=== PATIENT | female | born 1940 | race Caucasian/White ===

== ENCOUNTER 2020-01-01 12:50 | Observation (INO) ==
[2020-01-01] MEDS ORDERED: fentaNYL citrate 100 MCG/2 ML VIAL ONE ×2 (15:53→17:41)
[2020-01-01] MEDS ORDERED: MIDAZOLAM HCL 5 MG/ML 1 ML VIAL ONE (15:53)
[2020-01-01] MEDS ORDERED: CEFAZOLIN 250 MG/ML 1 GM VIAL ONE (15:53)
[2020-01-01] MEDS ORDERED: LIDOCAINE HCL 1% 20 ML VIAL ONE (15:56)
[2020-01-01] MEDS ORDERED: BUPIVACAINE 0.25% 30 ML VIAL ONE (15:57)
[2020-01-01] MEDS ORDERED: BACITRACIN INJ 50,000 UNIT VIAL ONE (15:58)
--- NOTE | 2020-01-01 16:10 | History & Physical Bridge Note ---
Date of Service January 01, 2020 History & Physical Bridge Note I have examined the patient, reviewed the History & Physical and in the interval since the performance of the History & Physical I have noted the following changes of clinical significance: no changes noted
--- NOTE | 2020-01-01 16:10 | Pre Anesthesia Assessment ---
Date of Service January 01, 2020 Pre Sedation Assessment Vital Signs Temp Pulse Resp BP Pulse Ox 01/01/20 13:08 36.8 C 81 16 167/91 H 95 Cardiovascular + regular rate Respiratory normal respiratory effort, lungs clear to auscultation Pre-Sedation Airway Assessment Smoking Status: Former smoker Short, Thick Neck: No Thyromental Distance: > or= 3.5 Finger Breadths Oral Cavity: + Dentures Mallampati Class: III ASA: ASA3 NPO Status Date of Last Intake of Fluids: 12/31/19 Time of Last Intake of Fluids: 22:00 Date of Last Intake of Solid Food: 12/31/19 Time of Last Intake of Solid Foods: 20:00 Procedure Planning Contraindications for Sedation: none Current Medications Reviewed: Yes Notes The planned sedation has been discussed with the patient. Informed Consent was obtained. I have identified the patient, determined the appropriateness of sedation and have assessed the patient immediately prior to the procedure. All medicine(s) and interventions are by my order.
--- NOTE | 2020-01-01 18:09 | Discharge Summary ---
Date of Service Jan 02, 2020 Admission HPI Per Admitting Provider Pt admitted for elective ppm Admission Exam Per Admitting Provider aaox3, NAD NC/AT, EOMI Supple No JVD Nrl S1/S2, No murmur CTA b/l no w/r/r soft nt/nd no LE edema b/l skin intact no focal deficits Principal Diagnosis Intermittent CHB s/p PPM Discharge Exam aaox3, NAD NC/AT, EOMI Supple No JVD Nrl S1/S2, No murmur CTA b/l no w/r/r soft nt/nd no LE edema b/l skin intact no focal deficits left pectoral incision intact, no hematoma mild ecchymosis Discharge Data Allergies Allergy/AdvReac Type Severity Reaction Status Date / Time acetaminophen [From Vicodin] Allergy Swelling Verified 01/01/20 13:24 of Lip/Tongue/Throat hydrocodone [From Vicodin] Allergy Swelling Verified 01/01/20 13:24 of Lip/Tongue/Throat Procedures Performed Operation Date: 01/01/20 14:30 Actual Procedures p Pacer with A/V Leads (Dual) - Sofi Woody DO s Venogram, Unilateral - Sofi Woody DO s Bundle of his Recording - Sofi Woody DO Ordered Studies ECG: SR CXR: No PTX, leads in position PPM Interrogation:Normal function 01/01/20 06:45 EP Lab Images for PACS ONCE Hospital Course (1) Intermittent complete heart block: Total Time Total Time Spent Total Time Spent (In Minutes): 35 Total Time Includes: Examination of the Patient, Discharge Planning, Medication Reconciliation and Other Discharge Plan Discharge Items Patient Disposition: Home - Self-Care Reason For Visit: Intermittent Complete Heart Block Discharge Diagnosis: intermittent CHB s/p left bundle ppm Condition on Discharge: Good Activity: As commented below Activity Comment: do not raise the left elbow over the left shoulder for 1 month Lifting: No more than 10 pounds Bathing: Keep incision dry Bathing Comment: keep dressing on and dry until wound check next week Sexual Activity: After one week Non-emergency contact: Transcription Typist Call non-emergency contact if: you have any medication questions Follow-up/Referrals: Brigida Pandey DO [Primary Care Provider] - Diet: Heart Healthy Addtl Attending Provider Instructions: device and wound check next week as scheduled at [facility] Pending Studies at Discharge: No Stand-Alone Forms: [facility] Medications and DC Order Prescriptions: New metoprolol succinate 25 mg Tablet Extended Release 24 Hr 25 mg PO QAM 30 Days Qty: 30 RF: 0 Continued losartan 50 mg Tablet 50 mg PO DAILY RF: 0 atorvastatin [Lipitor] 40 mg Tablet 40 mg PO DAILY RF: 0 levothyroxine 100 mcg Tablet 100 mcg PO DAILY RF: 0 ropinirole [Requip] 2 mg Tablet 2 mg PO HS RF: 0 aspirin 81 mg Tablet 81 mg PO DAILY RF: 0 escitalopram oxalate [Lexapro] 10 mg Tablet 10 mg PO DAILY RF: 0 metformin 500 mg Tablet Extended Release 24hr 500 mg PO BID RF: 0 Discharge Orders: Discharge Order (Routine); Ordered 01/02/20 Ordered By: Sofi Woody Admission Data Admit Date/Time: 01/01/20 17:03 Attending Provider: Sofi Woody Admit Provider: Sofi Woody Primary Care Provider: Brigida Pandey
[2020-01-01] MEDS ORDERED: OXYCODONE/ACETAMINOPHEN 5mg/325mg TAB PO PRN (18:45)
[2020-01-01] MEDS ORDERED: ACETAMINOPHEN 325 MG TAB PO PRN (18:45)
[2020-01-01] MEDS ORDERED: ROPINIROLE HCL 1 MG TABLET PO SCH (21:00)
[2020-01-02] MEDS ORDERED: LEVOTHYROXINE SODIUM 100 MCG TABLET PO SCH (06:30)
[2020-01-02] MEDS ORDERED: METFORMIN 500 MG PO SCH (08:00)
[2020-01-02] MEDS ORDERED: METFORMIN HCL 500 MG TAB PO SCH (08:00)
--- NOTE | 2020-01-02 08:32 | XRay Report ---
TWO VIEW CHEST CLINICAL HISTORY: Status post pacemaker implantation. FINDINGS: PA and lateral chest radiographs are obtained. No prior studies are available for compariso n at the time of dictation. A 2-lead cardiac pacemaker has been placed. This partially obscures the l eft upper chest. Leads project over the right atrial appendage and the right ventricle. The heart is mildly enlarged noting atherosclerotic calcification of the thoracic aorta. The pulmonary vasculature is noncongested. There is bibasilar scarring/atelectasis. No airspace consolidation or pleural effus ion is identified. There is no pneumothorax. The bony skeletal structures are osteopenic. A mild comp ression deformity is noted in the thoracic spine. IMPRESSION: 1. A 2-lead cardiac pacemaker has been placed as above. No pneumothorax is seen post procedure. 2. Cardiomegaly without radiographic evidence of congestive failure. 3. No airspace consolidation or pleural effusion is identified. ACT 112: Negative or not required by law. Electronically signed by: Barry Yost M.D. 01/02/2020 8:31 AM
[2020-01-02] MEDS ORDERED: LOSARTAN POTASSIUM 50 MG TAB PO SCH (09:00)
[2020-01-02] MEDS ORDERED: ASPIRIN 81 MG ECTAB PO SCH (09:00)
[2020-01-02] MEDS ORDERED: ESCITALOPRAM OXALATE 10 MG TAB PO SCH (09:00)
[2020-01-02] MEDS ORDERED: METOPROLOL SUCC 25MG EXT REL TAB PO SCH (09:00)
[2020-01-02] MEDS ORDERED: ATORVASTATIN 40 MG TAB PO SCH (09:00)
--- NOTE | 2020-01-03 05:46 | Electrocardiogram Report ---
Test Reason : Blood Pressure : / mmHG Vent. Rate : 067 BPM Atrial Rate : 067 BPM P-R Int : 188 ms QRS Dur : 082 ms QT Int : 398 ms P-R-T Axes : 072 -53 -01 degrees QTc Int : 420 ms Sinus rhythm with Premature atrial complexes Left axis deviation Nonspecific ST and T wave abnormality Abnormal ECG No previous ECGs available Confirmed by Raudel Tilley ([id number]) on 01/03/2020 5:45:41 AM Referred By: Sofi Woody Confirmed By:Raudel Tilley
--- NOTE | 2020-01-09 03:51 | Operative Report (OR) ---
DATE OF OPERATION: 01/01/2020 PREOPERATIVE DIAGNOSIS: Tachybrady syndrome. POSTOPERATIVE DIAGNOSIS: Tachybrady syndrome. PROCEDURE: Dual chamber (left bundle) rate responsive permanent pacemaker under fluoroscopic guidance along with peripheral venogram and intracardiac electrogram mapping of the His bundle region. SURGEON: Sofi oWody DO. CENTRAL LAB TECHNICIAN: None Anesthesia: Genet [place]. Start time 16:40, end time 17:58 and a total of 5 mg of Versed and 125 mcg of fentanyl. INTRAVENOUS FLUIDS: 142 mL. ANTIBIOTICS: Two grams of Ancef. CONTRAST: 17 mL. BLOOD LOSS: 20 mL. URINE OUTPUT: Not applicable. SPECIMENS: None. FINDINGS: See below. DRAINS: None. INDICATIONS: This is a 79-year-old female with past medical history for PAT, hypertension, chronic kidney disease stage III, COPD, hypothyroidism, diabetes as well as syncope secondary to intermittent complete heart block, she was recommended a dual chamber pacemaker. CONSENT: Consent was obtained prior to the patient going into electrophysiology lab. The patient was informed of the risks, benefits and alternative procedure. Risks include but not limited to sudden cardiac , cardiac arrhythmias, cerebrovascular accident, myocardial infarction, injury to the blood vessels, chamber of the heart, lung, bleeding, and infection. The patient understood these risks and agreed with procedure as planned. Informed consent was obtained. DESCRIPTION OF THE PROCEDURE: The patient was brought into the electrophysiology lab in fasting state. She was connected to continuous musical engineer. Timeout was performed to ensure patient identity and procedure correctly. The patient was prepped and draped over the left infraclavicular space in normal surgical standard fashion. Monitored conscious sedation was given throughout the procedure for patient's comfort level. [place] precautions were maintained throughout the procedure. 10 mL of 1% lidocaine, bupivacaine mixture were given in the left deltopectoral groove. Incision was made in left deltopectoral groove. Blunt dissection performed down to the subcutaneous tissue. Then a peripheral venogram using 10 mL of contrast was performed to identify the axillary vein. Venous axillary access was obtained through a needlestick without any problems. Guidewire was inserted without any problems. A 7-[place] SafeSheath was then advanced over the guidewire without any resistance. The dilator was removed and a second guidewire was advanced through the sheath to allow for retained venous access. Sheath was removed and then the 7-[place] sheath was placed back over one o fthe guidewires it was flushed, dilator reinserted over it and then it was placed over one of the guidewires. Guidewire and dilator were removed. Then, the His preformed J sheath was advanced into the right ventricle over a Glidewire. The Glidewire and dilator were removed. Then, the lead was advanced through the sheath and intracardiac electrogram mapping was performed of the His bundle. The AH was found to be 99 milliseconds, HV was 54 milliseconds. I then rotated the camera to ANTONIO 30 degrees. I marked where the His area was on my fluoroscopy monitors. Then I connor an imaginary line down to the apex about 2 cm down from the His on that imaginary line, from the His bundle, I marked on my monitors screens again so I have an idea of where I wanted my left bundle lead. I then positioned the sheath and the lead in that area in [place], I watch to make sure I was up against the septum. I then gave a series of clockwise turns to start screwing the lead into the septum watching every few turns and look at my QRS morphology in V1 to see that there was a notch moving out to the end and the pacing stim to peak QRS V5 and V6 as well as looking at impedance drops. I then gave a puff of contrast through the sheath to see how much my sheath was against the septum and how much my lead was in the septum to get an idea. Once I felt confident and happy with my electrogram and how much of lead was in the septum, the sheath was then slit under fluoroscopic guidance. I kept the 7-[place] SafeSheath in and then I went to go to place the right atrial lead. Through the retained guidewire an 8-[place] SafeSheath was advanced. The guidewire and dilator removed. The right atrial lead was then advanced into right atrium and positioned interatrial appendage under fluoroscopic guidance. There was adequate pacing and sensing thresholds and no diaphragmatic stimulation with high output pacing. An 8-[place] sheath was peeled away and lead was fixated to pectoralis muscle using 0 silk suture. I then slit. The 7-[place] SafeSheath over the left bundle lead (of note I did reposition the left bundle once). Then the sheath was slit and the lead was fixated to pectoralis muscle using 0 silk suture. The pacemaker pocket was created using blunt dissection over the pectoralis muscle within the pectoralis fascia. The pocket was flushed with copious amounts of bacitracin saline wash and inspected for hemostasis. The pulse generator was then attached to leads making sure the pins were in appropriate position, passed set screw and set screws were tightened, then the device was placed in an antibiotic pouch and then placed in the pocket, making sure the leads were lying flat beneath the device. The incision was then closed in 3-layer fashion with 2-0 Vicryl interrupted suture followed by 3-0 Vicryl interrupted suture, followed by Monocryl running stitch. Dermabond was applied followed by a Telfa and micropore dressing. EQUIPMENT: 1. The new pulse generator is a Stir [place] XT DR TYLER Roper [id number], serial #[id number]. 2. Tyrx pouch was reference [id number], lot #[id number], expiration 10/20/2020. 3. Right atrial lead Medtronic 5076-52 cm, serial #[id number]. 4. Left bundle lead is a Medtronic 3830-69 cm, serial #[id number]. INTRAOPERATIVE TESTIN. Right atrial lead: P waves 4.8 millivolts, impedance 1023 ohms, threshold 0.9 volts at 0.5 milliseconds. 2. Left bundle lead: Medtronic 3830-69 cm, serial number [id number]. INTRAOPERATIVE MEASUREMENTS: 1. Right atrial lead: P waves 4.8 millivolts, impedance 1023 ohms, threshold 0.9 volts at 0.5 milliseconds. 2. Left bundle lead: R waves are 9.4 millivolts, impedance 773 ohms, threshold 0.4 volts at 0.5 milliseconds. FINAL MEASUREMENTS THROUGH THE DEVICE: 1. Right atrial lead: P waves 1 millivolt, impedance 874 ohms, threshold 0.75 volts at 0.4 milliseconds. 2. Left bundle lead: R waves 9.8 millivolts, impedance 708 ohms, threshold 0.75 volts at 0.4 milliseconds. 3. Right atrial amplitude 3.5 volts, pulse width 0.4 milliseconds, sensitivity 0.3 millivolts. 4. Right ventricular amplitude 3.5 volts, pulse width 0.4 milliseconds, sensitivity 1.2 millivolts. IMPRESSION: Successful implantation of a dual chamber (left bundle) rate responsive permanent pacemaker along with peripheral venogram and intracardiac His electrogram mapping all under fluoroscopic guidance secondary to intermittent complete heart block. PLAN: Monitor patient overnight, 12-lead ECG, chest x-ray. She cannot lift left elbow or left shoulder for 1 month. She cannot lift more than 10 pounds with the left arm for 2 weeks. She is to keep the dressing on and dry until her wound check next week and we will start her on metoprolol 25 mg daily. I attest to the content of the Intraoperative Record and any orders documented therein. Any exceptions are noted below. MTDD
== END 2020-01-02 09:30 | disposition home or self-care (01) ==
LOC: 2S 12:50 → EP 12:50
DX: Z79.899 Other long term (current) drug therapy; E11.22 Type 2 diabetes mellitus with diabetic chronic kidney disease; E78.5 Hyperlipidemia, unspecified; N18.30 Chronic kidney disease, stage 3 unspecified; I44.2 Atrioventricular block, complete; I49.5 Sick sinus syndrome; Z01.810 Encounter for preprocedural cardiovascular examination; F39 Unspecified mood [affective] disorder; I47.1 Supraventricular tachycardia; I12.9 Hypertensive chronic kidney disease with stage 1 through stage 4 chronic kidney disease, or unspecified chronic kidney disease; Z79.890 Hormone replacement therapy; Z79.82 Long term (current) use of aspirin; J44.9 Chronic obstructive pulmonary disease, unspecified; E03.9 Hypothyroidism, unspecified

== ENCOUNTER 2024-06-07 05:50 | Observation (INO) ==
--- NOTE | 2024-05-07 16:26 | PAT Medication Instructions ---
Medication Instructions Date of Service May 07, 2024 Home Medications atorvastatin 40 mg tablet (Lipitor) 40 mg PO QAM escitalopram oxalate 10 mg tablet (Lexapro) 10 mg PO DAILY losartan 50 mg tablet 50 mg PO QAM ropinirole 2 mg tablet 2 mg PO HS gabapentin 600 mg tablet 600 mg PO HS acetaminophen 500 mg tablet 1,000 mg PO Q6H PRN Pain albuterol sulfate 90 mcg/actuation aerosol inhaler 1 inh inhalation QID PRN SOB or wheezing levothyroxine 75 mcg tablet 75 mcg PO QAM oxycodone 5 mg tablet 5 mg PO UD PRN Pain semaglutide 0.25 mg or 0.5 mg (2 mg/3 mL) subcutaneous pen injector (Ozempic) 0.25 mg subcut Q7D Continue as directed escitalopram oxalate 10 mg tablet (Lexapro) 10 mg PO DAILY STOP taking at least 7 days before surgery semaglutide 0.25 mg or 0.5 mg (2 mg/3 mL) subcutaneous pen injector (Ozempic) 0.25 mg subcut Q7D DO NOT take the morning of surgery losartan 50 mg tablet 50 mg PO QAM Take morning of surgery With a small sip of water, OTHERWISE NOTHING TO EAT OR DRINK AFTER MIDNIGHT: atorvastatin 40 mg tablet (Lipitor) 40 mg PO QAM acetaminophen 500 mg tablet 1,000 mg PO Q6H PRN Pain (if needed) albuterol sulfate 90 mcg/actuation aerosol inhaler 1 inh inhalation QID PRN SOB or wheezing (use if needed; please bring with you to hospital day of surgery if possible) levothyroxine 75 mcg tablet 75 mcg PO QAM oxycodone 5 mg tablet 5 mg PO UD PRN Pain (if needed) Take evening before surgery ropinirole 2 mg tablet 2 mg PO HS gabapentin 600 mg tablet 600 mg PO HS acetaminophen 500 mg tablet 1,000 mg PO Q6H PRN Pain (if needed) oxycodone 5 mg tablet 5 mg PO UD PRN Pain (if needed) albuterol sulfate 90 mcg/actuation aerosol inhaler 1 inh inhalation QID PRN SOB or wheezing (if needed) Other Notes If you have any questions please call us at [phone] or [phone] or [phone] or [phone]
--- NOTE | 2024-05-16 09:47 | Anesthesiology Consultation ---
Date of Service May 16, 2024 Assessment & Plan (1) Encounter for pre-operative examination: - Check BSG DOS - Infectious disease screening: Per assessment on 05/16/24- No known recent infectious disease contacts or current infectious disease symptoms. - Outpatient joint assessment: Pt currently scheduled for inpatient pathway. If surgeon requests review for outpatient joint pathway, patient is not recommended candidate for outpatient joint program from anesthesia standpoint based on available information. - Semaglutide instructions: Patient informed by PAT to stop 7 days prior to surgery- voiced understanding. DOS 06/07/24. Advised last dose to be 05/29/24. - Cardiology visit (05/30/23): "Plan: -HR and BP well controlled -she is euvolemic on exam -ECG completed today reveals normal sinus rhythm with stable intervals -device checks reveal stable pacing thresholds with adequate pacing burden. -device was interrogated today during the office visit please see Dr. Woody's attestation for additional details -continue to follow with device clinic -stable from a cardiac standpoint -scheduled for repeat echo today after her visit -continue metoprolol, losartan, atorvastatin, amlodipine -Educated patient on caution with change in positions to minimize symptomatic orthostatic hypotension -Discussed importance of diet & exercise with the patient. - Discussed with patient subtle changes in how they are feeling or completing daily activities to contact us sooner; don't wait days or weeks.." > Echo done 05/30/23 (results in testing section). - PCP visit (05/13/24): "Chronic Kidney Disease (CKD) Stable with creatinine 1.5, stage 3B. No new symptoms reported.. Continue current management and hydration.. Repeat kidney function tests in 6 months.. Type 2 Diabetes Mellitus Well controlled with HbA1c 6.6% on Ozempic 0.25mg.. Continue Ozempic 0.25mg.. Stop Ozempic 1 week prior to surgery.. Resume Ozempic post-surgery, increase to 0.5mg 2 weeks post-surgery.. Severe pain, scheduled for total hip replacement on June 07, 2024.. Fatty Liver Disease No current abnormalities in liver function tests.. Continue current management of metabolic syndrome including diabetes, hypertension, and cholesterol control.. Avoid liver toxins including alcohol, fructose, and excessive Tylenol." - Pending: * Awaiting most recent pacer check ([facility]/Dr. Woody). * Preop CXR: Done 05/16/24- noted "Mild pneumonitis changes noted in bilateral lower lung zone." Note written to PCP regarding preop CXR findings- Awaiting response ([facility]/Dr. Hakeem Gamble). Chart Review Chart Review: Patient seen in Pre Admission Testing Teaching & Discussion Pre-Anesthesia Teaching/Discussion Notes: Instructed NPO after midnight before surgery,except medications with 15 cc of water. Medication instructions provided according to the PAT guidelines. History Surgery Operation Date: 06/07/24 11:00 Proposed Procedures p Right Anterior Total Hip Arthroplasty - Irwin Campbell, DO Height/Weight Height: 5 ft 5 in Weight: 92.2 kg Allergies Allergy/AdvReac Type Severity Reaction Status Date / Time acetaminophen [From Vicodin] Allergy Swelling Verified 05/06/24 10:20 of Lip/Tongue/Throat hydrocodone [From Vicodin] Allergy Swelling Verified 05/06/24 10:20 of Lip/Tongue/Throat Medications Home Medications Medication Instructions Recorded Confirmed Last Taken atorvastatin 40 mg tablet (Lipitor) 40 mg PO QAM 01/01/20 05/06/24 Unknown escitalopram oxalate 10 mg tablet 10 mg PO DAILY 01/01/20 05/06/24 Unknown (Lexapro) losartan 50 mg tablet 50 mg PO QAM 01/01/20 05/06/24 Unknown ropinirole 2 mg tablet 2 mg PO HS 01/01/20 05/06/24 Unknown gabapentin 600 mg tablet 600 mg PO HS 02/28/24 05/06/24 Unknown acetaminophen 500 mg tablet 1,000 mg PO Q6H PRN Pain 05/06/24 05/06/24 Unknown albuterol sulfate 90 mcg/actuation 1 inh inhalation QID PRN SOB or 05/06/24 05/06/24 Unknown aerosol inhaler wheezing levothyroxine 75 mcg tablet 75 mcg PO QAM 05/06/24 05/06/24 Unknown oxycodone 5 mg tablet 5 mg PO UD PRN Pain 05/06/24 05/06/24 Unknown semaglutide 0.25 mg or 0.5 mg (2 0.25 mg subcut Q7D 05/06/24 05/06/24 Unknown mg/3 mL) subcutaneous pen injector (Ozempic) Mar Lucio #1 ea 05/15/24 05/15/24 Unknown Past Medical History Medical History Anxiety and depression Asthma CKD (chronic kidney disease), stage III Per [facility] PCP records Diabetes mellitus, type 2 History of shingles ~2014, "reason for gabapentin" Hx of migraines Hypertension Hypothyroidism Intermittent complete heart block PPM insertion Osteoarthritis of right hip Pacemaker Inserted 2019 Follows with [facility] EP/Dr. Woody RLS (restless legs syndrome) Exercise / Class Metabolic Activity III < 4 Walking/Shop/Light housework Past Surgical History Surgical History History of esophagogastroduodenoscopy (EGD) Hx of appendectomy age 13 Hx of bilateral cataract extraction Hx of colonoscopy Hx of detached retina repair left eye Hx of total hysterectomy with removal of both tubes and ovaries S/P cardiac pacemaker procedure 2019 Past Anesthesia History No Hx of Anesthesia Complications and No Family Hx of Anesthesia Complications History of PONV No Hx of PONV and No Hx of Motion Sickness Social History Smoking Status: Former smoker Do You Dip or Chew Tobacco: No Smoking End Date: Quit age 45 Hx Alcohol Use: Yes alcohol intake frequency: holidays/special occasions only Hx Substance Use: Yes substance use type: marijuana (11/2023, occasional) Review of Systems Patient denies chest pain, shortness of breath, fever, chills, cough, wheezing, palpitations. Physical Exam Vital Signs BP 110/69 P 71 TEMP 98.5 SP02 96%RA RESP 16 Physical Mildly decreased cervical extension range of motion. Full TMJ range of motion. TMD 3 finger breaths Mallampati Score III Dentition: full upper/lower dentures Lungs: clear throughout to auscultation Cardiac: regular rate and rhythm, no murmurs noted Spine: normal Carotid arteries: negative bruit Extremities: no LE edema Lab Results Anesthesia Preop Results Results Anesthesia Widget: PT 10.4 Seconds (9.0-12.0) 05/16/24 PTT 26 Seconds (21-31) 05/16/24 INR 1.0 (0.9-1.1) 05/16/24 Blood Type O Positive 05/16/24 Antibody Screen NEGATIVE 05/16/24 Testing Laboratory Results 05/07/24 WBC 7.04 H/H 13.1/40.7 PLATELETS 221 SODIUM 141 POTASSIUM 4.2 CHLORIDE 106 CO2 25 BUN 14 CREATININE 1.5 GLUCOSE 127 TSH 2.05 HGBA1C 6.6% Electrocardiogram Date: 05/16/24 Atrial-paced rhythm with prolonged AV conduction at 61bpm. Low voltage QRS. NS ST/TWA. Chest X-Ray Date: 05/16/24 IMPRESSION : Post-operative status with cardiac pacemaker noted in situ. Mild pneumonitis changes noted in bilateral lower lung zone. As compared previous x- ray date 01/02/2020 present x-ray shows mild pneumonitis changes noted. Echocardiogram Date: 05/30/23 LVEF 55-59%. LV wall motion is normal Grade I DD. Mild AV sclerosis. Midl[place] increased cLV wall thickness.
[2024-06-07] MEDS ORDERED: BUPIVACAINE 0.5 % 5 MG/1 ML PF 10ML VIAL ONE (06:31)
--- NOTE | 2024-06-07 06:33 | History & Physical Bridge Note ---
Date of Service June 07, 2024 History & Physical Bridge Note I have examined the patient, reviewed the History & Physical and in the interval since the performance of the History & Physical I have noted the following changes of clinical significance: no changes noted
[2024-06-07] MEDS ORDERED: PROPOFOL IV EMULSION 10 MG/ML 20 ML VIAL IV ONE (06:53)
[2024-06-07] MEDS ORDERED: fentaNYL citrate PF 100 MCG/2 ML VIAL ONE (06:55)
[2024-06-07] MEDS ORDERED: MIDAZOLAM HCL 1 MG/ML 2ML VIAL ONE (06:55)
[2024-06-07] MEDS ORDERED: PHENYLEPHRINE HCL 10 MG/ML VIAL ONE ×2 (06:57→08:25)
[2024-06-07] MEDS: LR 500ML BOLUS, THEN 15ML/HR IV SCH (07:12)
[2024-06-07] MEDS: LR 60ML/HR IV SCH (07:13)
[2024-06-07] MEDS: ACETAMINOPHEN 500 MG TAB PO SCH ×2 (07:14→14:03)
[2024-06-07] MEDS: dexAMETHasone**PF** 10 MG/ML VIAL IV SCH (07:15)
[2024-06-07] MEDS: FAMOTIDINE 20 MG TAB PO SCH (07:15)
[2024-06-07] MEDS: GABAPENTIN 300 MG CAP PO SCH (07:16)
[2024-06-07] MEDS ORDERED: ATROPINE SULFATE 0.1 MG/ML 10ML SYR IV PRN (07:21)
[2024-06-07] MEDS ORDERED: fentaNYL citrate PF 100 MCG/2 ML VIAL IV PRN (07:21)
[2024-06-07] MEDS ORDERED: ePHEDrine sulfate 50 MG/ML AMP IV PRN (07:21)
[2024-06-07] MEDS ORDERED: ONDANSETRON INJ 2 MG/ML 2 ML VIAL IV PRN ×2 (07:21→11:40)
[2024-06-07] MEDS: TRANEXAMIC ACID 1,000 MG **IV Pre-op IV SCH (07:47)
[2024-06-07] MEDS: ceFAZolin 2000MG 2,000 MG/15 ML SYR IV SCH ×2 (08:05→15:27)
[2024-06-07] MEDS ORDERED: ePHEDrine sulfate 50 MG/5 ML SYR ONE (08:25)
[2024-06-07] MEDS: ORTHO JOINT ANESTHETIC ONE (08:44)
[2024-06-07] MEDS: ROPIV 0.5% 246mg, Ketorolac 30mg, EPINEPHrine 0.5mg in NSS INFIL SCH (08:44)
[2024-06-07] MEDS: TRANEXAMIC ACID 1,000 MG **IV Intra-op IV SCH (09:08)
--- NOTE | 2024-06-07 09:11 | Operative Report ---
PG Post Operative Report Pre & Post Diagnosis Operation Date: 06/07/24 08:00 Pre-Op Diagnosis: Right Hip Arthritis Post-Op Diagnosis: Right Hip Arthritis I identified the patient and participated in the time-out.: Yes Procedure Operation Date: 06/07/24 08:00 Actual Procedures p Right Anterior Total Hip Arthroplasty(Right) - Irwin Campbell DO Surgeon Irwin Campbell DO Video Manager Flavio Lucero PA-C Estimated Blood Loss 250 Findings Consistent with Post-Op Diagnosis Specimens Right femoral head Description of Procedure Implants used I used a ZimmerBiomet total hip arthroplasty system with a size 5 standard offset Avenir Complete stem, a 54 mm G7 cup with a 25mm screw, an E1 polyethylene liner, a 40 mm ceramic head with a 0 neck. Margy arrived at the hospital for the above procedure. She was seen in the preoperative holding area and the operative extremity was identified and signed. She was given a spinal anesthetic, a preoperative antibiotic, and TXA. She was then taken back to the operating room and laid on the table in the supine position. She was given basic sedation. The operative leg was secured to a Puristst leg positioner. The hip was then prepped and draped in sterile fashion. A timeout was done and the patient and the operative extremity was properly identified. An anterior approach was used. Dissection was taken down through the fascia and the tensor muscle belly was retracted laterally and the rectus was retracted medially. The circumflex vessels were identified and ligated. The capsule was then incised and tagged for later repair. The femoral neck was then cut and the femoral head was removed. The acetabulum was exposed. Time was spent doing a complete circumferential labral release. Sequential reaming of the acetabulum up to a size 53 reamer was done. Final reamings were done under fluoroscopy to ensure appropriate version. A Biomet 54 mm G7 cup was then impacted into place. A single 25 mm screw was placed. The E1 polyethylene liner was then snapped into place. Surrounding soft tissues were then injected with 100 cc of an orthopedic pain control cocktail. The proximal femur was then exposed. Sequential broaching up to a size 5 broach was done. Off that broach a size 40 head with a 0 neck was trialed. The hip was reduced and fluoroscopic images showed anatomic alignment of the implants in acceptable length. The broach was removed. The final size 5 standard offset Avenir Complete stem was then impacted into place. A ceramic 40 mm head with a 0 neck was then impacted onto the stem and the hip was reduced. Final fluoroscopic images showed anatomic alignment of the hip. The capsule was then closed with #1 Vicryl suture. A dilute betadyne lavage was then done for 3 minutes. The joint was then irrigated with normal saline solution. The fascia was closed with #1 PDS suture. Skin was closed with 2-0 Vicryl, kalpana, and a Silverlon dressing. She was then transferred to a hospital bed and taken to the post anesthesia care unit in stable condition. She tolerated the procedure well. Flavio Lucero PA-C, was present for the entire procedure. He was critical for patient positioning, prepping, draping, retraction exposure, wound closure and application of sterile dressing. I attest to the content of the Intraoperative Record and any orders documented therein. Any exceptions are noted below.
--- NOTE | 2024-06-07 09:18 | Fluoroscopy Report ---
FL hip RT 1V CLINICAL HISTORY: RIGHT ANTERIOR HP COMPARISON STUDY: 01/04/2024 FLUOROSCOPY TIME: 18 seconds FLUOROSCOPY IMAGES: 2 EXPOSURE DOSE: 2.4 mGy FINDINGS: Fluoroscopy was provided for right hip prosthesis placement. IMPRESSION: Intraoperative fluoroscopy. ACT 112: Negative or not required by law. Electronically signed by: Dixon Ramos M.D. 06/07/2024 9:17 AM
--- NOTE | 2024-06-07 09:58 | XRay Report ---
XR hip 1V RT w pelvis CLINICAL HISTORY: IN PACU - Post Surgical COMPARISON: 01/04/2024 FINDINGS: Right hip prosthesis shows no hardware complication. There is expected soft tissue gas. Sk in kalpana are present. There are mild degenerative changes at the left hip. IMPRESSION: Unremarkable postoperative exam. ACT 112: Negative or not required by law. Electronically signed by: Dixon Ramos M.D. 06/07/2024 9:57 AM
[2024-06-07] MEDS ORDERED: METOCLOPRAMIDE HCL INJ 5 MG/ML 2 ML VIAL IV PRN (11:40)
[2024-06-07] MEDS ORDERED: HYDROmorphone INJ 0.5 MG/0.5 ML SYR IV PRN (11:40)
[2024-06-07] MEDS ORDERED: MAGNESIUM HYDROXIDE SUSP 30 ML UDC PO PRN (11:40)
[2024-06-07] MEDS ORDERED: NALOXONE HCL 0.4 MG/1 ML VIAL/CARP IV PRN (11:40)
[2024-06-07] MEDS ORDERED: PHARMACY GLYCEMIC MGMT CONSULT PRN (11:40)
[2024-06-07] MEDS ORDERED: ALBUTEROL HFA 8 GM INHALER INH PRN (11:40)
[2024-06-07] MEDS ORDERED: NON-FORMULARY MEDICATION (Semaglutide [Ozempic] 0.25 mg or 0.5 mg (2 mg/3 mL) Pen Injector SQ SCH (11:40)
[2024-06-07] MEDS ORDERED: bisacodyL 10 MG SUPP PR PRN (11:40)
[2024-06-07] MEDS: KETOROLAC TROMETHAMINE 15 MG/ML VIAL IV SCH (12:18)
--- NOTE | 2024-06-07 13:54 | Pharmacy Report ---
Pharmacy Glycemic Short Note 2 - Date of Service June 07, 2024 - Glycemic Short BSG Results (Last 24 hours): 06/07/24 06/07/24 06/07/24 06:48 09:39 13:22 POC Glucose 129 H 139 H 213 H OUTPATIENT ANTIDIABETIC REGIMEN: * Ozempic 0.5mg SQ weekly HbA1c ordered for 06/08 ASSESSMENT: * 83 year old female admitted today for right anterior total hip arthroplasty (POD#0). Pharmacy has been consulted for glycemic management postop. * Preop BSG was 139mg/dL and postop BSG was 213mg/dL. She did receive 10mg iv dexamethasone x 1 preop. * Lantus 15units SQ x 1 has been ordered to be given this afternoon and a weight based bolus insulin regimen with a stress of ~2 was started. No further doses of steroids have been ordered at this time. PLAN FOR INPATIENT GLYCEMIC CONTROL: * Hold outpatient diabetes medications * Basal insulin * Lantus 15 units SQ x1, will assess further need based on additional BSGs * Bolus insulin * NovoLog per scale ACHS or Q6hrs while NPO * Goal Range: Low 110 mg/dL - High 140 mg/dL * Correction Factor: 30 mg/dL/unit * Nutritional / Prandial insulin per carb ratio of 1 unit per 10 grams CHO consumed
[2024-06-07] MEDS: LANTUS PER UNIT CHARGE SC ONE (14:03)
[2024-06-07] MEDS: INSULIN ASPART PER UNIT CHARGE SC SCH (14:03)
--- NOTE | 2024-06-07 15:09 | Anesthesiology Progress Note ---
Date of Service June 07, 2024 Anesthesia Post Procedure Vital Signs Vital Signs: Temp Pulse Pulse Resp BP Pulse Ox O2 Del Method 06/07/24 13:34 36.8 C 77 16 94/60 L 96 Room Air 06/07/24 13:03 36.8 C 76 16 104/63 97 Room Air 06/07/24 12:41 36.7 C 78 18 106/67 95 Room Air 06/07/24 12:26 36.7 C 77 16 106/67 96 Room Air 06/07/24 12:03 36.7 C 73 16 93 Room Air 06/07/24 11:35 79 20 100/60 95 Room Air 06/07/24 11:05 81 21 101/64 98 Room Air 06/07/24 10:50 71 13 105/56 L 98 Room Air 06/07/24 10:35 70 16 103/52 L 93 Room Air 06/07/24 10:20 70 12 109/50 L 92 Room Air 06/07/24 10:05 75 12 105/55 L 97 Room Air 06/07/24 09:55 36.6 C 75 18 103/52 L 96 Room Air 06/07/24 09:45 76 18 104/55 L 100 Oxymask 06/07/24 09:36 36.2 C L 85 16 118/57 L 100 Oxymask 06/07/24 06:52 36.9 C 74 18 137/77 96 Room Air O2 Flow Rate 06/07/24 13:34 06/07/24 13:03 06/07/24 12:41 06/07/24 12:26 06/07/24 12:03 06/07/24 11:35 06/07/24 11:05 06/07/24 10:50 06/07/24 10:35 06/07/24 10:20 06/07/24 10:05 06/07/24 09:55 06/07/24 09:45 6 06/07/24 09:36 6 06/07/24 06:52 Transfer of Care Handoff Completed per policy Notes Mental Status: alert / awake / arousable and participated in evaluation Patient Amnestic to Procedure: Yes Nausea / Vomiting: adequately controlled Pain: adequately controlled Airway Patency, RR, SpO2: stable & adequate BP & HR: stable & adequate Hydration State: stable & adequate Neuraxial Anesthesia: was administered and sensory block is resolving Anesthetic Complications: no major complications apparent and Pt Satisfied with anesthetic care
[2024-06-07] MEDS ORDERED: ceFAZolin 1000MG 1,000 MG/7.5 ML SYR IV SCH (15:45)
--- OUTSIDE RECORDS SUMMARY | 2024-06-07 15:55 | External Medical Summary | Summary of Care ---
Author Name Unknown Organization [facility] Address [address] [place] [address] Phone [phone] Care Team Providers Care Registered Health Nurse Name Role Phone Hakeem Yanes MD Primary Care P rovider Reason for Visit * Reason Onset Date Comments Medication Refill 05/30/2024 Encounter Details Date Type Department Care Team ([facility] st Contact Info) Description 05/30/2024 Refill Family [address] [address] Hakeem Yanes MD [address] [place] [id number] Allergies Active Allergy Reactions Criticality Noted Date Comments Hydrocodone-Acetaminophen Edema face/lips/tongue High 10/21/2015 documented as of this encounter (statuses as of 06/05/2024) Medications TiffanyTouch Artis Lancets 33G Use as directed daily. Dx E11.9, Disp-100 100 Each 11 02/03/20 20 Active Vitamin D-3 25 MCG (1000 UT) Oral Capsule Take 1 Capsule by mouth in the morning. Active Ondansetron HCl 4 MG Oral TabletIndications: Nausea Take by mouth 1 Tablet every 6 hours as needed for Nausea. 20 Tablet 09/21/19 22 Active Famotidine 10 MG Oral Tablet (Pepcid) Take by mouth 1 Tablet in the morning AND 1 Tablet before bedtime. For heartburn. 60 Tablet 1 01/21/20 22 Active Diclofenac Sodium 1 % External Gel (Voltaren) Apply 1 g topically to affected area every 8 hours as needed for Pain, Moderate. Apply to affected area as directed 100 g 5 05/06/19 23 Active Gabapentin 600 MG Oral Tablet (Neurontin)Indicat ions:Other chronic pain Take 1 Tablet by mouth at bedtime as needed for Pain, Severe. 90 Tablet 1 06/28/19 23 Active Lansoprazole 30 MG Oral Capsule Delayed Release (Prevacid)Indicati ons:Gastroesophage al reflux disease, unspecified whether esophagitis present Take 1 Capsule by mouth in the morning. 30 minutes before the first meal of the day.. 30 Capsule 1 05/04/19 24 Active Acetaminophen 325 MG Oral Tablet (Tylenol) Take 1-2 Tablets by mouth daily. Active Atorvastatin Calcium 40 MG Oral Tablet (Lipitor)Indicatio ns:Dyslipidemia, goal LDL below 100 Take 1 Tablet by mouth in the morning. 90 Tablet 3 07/20/19 24 Active Escitalopram Oxalate 10 MG Oral Tablet (Lexapro)Indicatio ns:Mood disorder (HCC) Take 0.5 Tablets by mouth in the morning and 0.5 Tablets in the evening. 90 Tablet 2 08/15/19 24 Active OneTouch Verio In Vitro Strip (Glucose Blood)Indications: Type 2 diabetes mellitus with target hemoglobin A1c of less than 7.5 percent ([facility]),Type 2 diabetes mellitus with stage 3a chronic kidney disease and hypertension ([facility]) Check blood sugar once a day. DX type 2 diabetes mellitus without insulin use, E11.9 Type 2 diabetes with hypertension and with chronic kidney disease stage IIIA E 11.22, I 12.9, N18.31 100 Strip 2 08/23/19 24 Active Losartan Potassium 50 MG Oral Tablet (Cozaar)Indication s:Essential hypertension with goal blood pressure less than 140/90,Type 2 diabetes mellitus with stage 3a chronic kidney disease and hypertension (HCC) TAKE 1 TABLET BY MOUTH IN THE MORNING 90 Tablet 2 11/21/19 24 Active oxyCODONE HCl 5 MG Oral Tablet (Oxy IR)Indications:Carmita eli osteoarthritis of both hips,Chronic right hip pain Take 1 Tablet by mouth every 8 hours as needed for Pain, Severe. 30 Tablet 05/13/19 25 Active Ozempic (0.25 or 0.5 MG/DOSE) 2 MG/3ML Solution Pen-injector (Semaglutide(0.25 or 0.5MG/DOS))Indicat ions:Type 2 diabetes mellitus with stage 3b chronic kidney disease, without long-term current use of insulin ([facility]) Inject 0.5 mg under the skin once a week. 3 mL 5 05/13/19 25 Active Levothyroxine Sodium 75 MCG Oral Tablet (Levoxyl)Indicatio ns:Acquired hypothyroidism TAKE 1 TABLET BY MOUTH IN THE MORNING AT LEAST 30 MINUTES PRIOR TO BREAKFAST OR OTHER MEDICATIONS 90 Tablet 1 05/13/19 25 Active Albuterol Sulfate (2.5 MG/3ML) 0.083% Inhalation Nebulization Solution (Proventil)Indicat ions:COPD, group B, by GOLD 2017 classification ([facility]) Inhale 1 Vial via nebulizer every 4 hours as needed for Wheezing, Shortness of Breath or Other (Cough). 75 mL 5 05/16/19 25 Active amLODIPine Besylate 10 MG Oral Tablet (Norvasc)Indicatio ns:Essential hypertension with goal blood pressure less than 140/90 Take 1 Tablet by mouth at bedtime. 90 Tablet 2 05/16/19 25 Active Ventolin HFA 108 (90 Base) MCG/ACT Inhalation Aerosol SolutionIndication s:COPD, group B, by GOLD 2017 classification ([facility]) Inhale 2 Puffs by mouth every 4 hours as needed for Wheezing. 18 g 5 05/22/19 25 Active Azithromycin 250 MG Oral Tablet (Zithromax Z-Edward)Indications: Atypical pneumonia Take two tablets by mouth on first day, then 1 tablet daily until gone 6 Tablet 05/23/19 25 Active documented as of this encounter (statuses as of 06/05/2024) Active Problems Problem Noted Date Diagnosed Date Hypertensive kidney disease with stage 3b chronic kidney disease 05/13/2024 Primary osteoarthritis of one hip, right 025 Primary osteoarthritis of both hips 10/28/2022 Nephrolithiasis 04/11/2022 Renal cyst, right 04/11/2022 Type 2 diabetes mellitus wit h stage 3b chronic kidney disease, without long-term current use of insulin 04/07/2022 Stage 3b chronic kidney disease 02/14/2022 Overview: Per CKD protocol Wears dentures 02/11/2021 Cardiac pacemaker in situ 02/24/2020 Mood disorder 10/15/2019 COPD, group B, by GOLD 2017 classification 02/11 Overview: Per COPD GOLD Classification Essential hypertension with goal blood pressure less than 140/90 11/20/2015 Hypothyroidism Neuralgia, post-herpetic Dyslipidemia documented as of this encounter (statuses as of 06/05/2024) Resolved Problems Problem Noted Date Diagnosed Date Resolved Date Type 2 diabetes mellitus wit h stage 3b chronic kidney disease 02/14/2022 05/04/2023 Overview: Per CKD protocol Hypertension associated with stage 3b chronic kidney disease due to type 2 diabetes mellitus 02/14/2022 05/04/2023 Overview: Per CKD protocol Type 2 diabetes mellitus wit h stage 3a chronic kidney disease and hypertension 09/15/2020 02/17/2022 Overview: Per CKD protocol Intermittent complete atrioventricular block 04/07/2022 Hypertension associated with stage 3 chronic kidney disease due to type 2 diabetes mellitus 09/11/2018 09/17/2020 Overview: Per CKD protocol Type 2 diabetes mellitus wit h stage 3a chronic kidney disease, without long-term current use of insulin 09/11/2018 02/17/2022 Overview: Per CKD protocol Prediabetes 08/22/2017 10/11/2018 Overview: Per Prediabetes protocol #1 Stage 3a chronic kidney disease 07/11/2017 02/17/2022 Overview: Per CKD protocol #1 COPD, severity to be determined 12/23/2015 02/15/2019 Overview: Per COPD GOLD Classification Essential hypernatremia 11/01 documented as of this encounter (statuses as of 06/05/2024) Immunizations Name Administration Dates Next Due COVID-19 mRNA, LNP-s, No Pre serve, 2-Dose Series ([employer]) 12/27/2022,05/19/2022,03/08/2021,06/11,05/14/2020 COVID-19, MRNA-LNP, PF, 30 M CG/0.3 mL, 12 YRS AND ABOVE, IM (PFIZER-Comirnaty) 12/15/2023 COVID-19, MRNA-LNP, PF, 50 M CG/0.5 mL, 12 YRS AND ABOVE, IM (MODERNA-Spikevax) 12/27/2022 Pneumococcal Conjugate Vacc, 13 Valent (Prevnar) 01/14/2016 Pneumococcal Polysaccharide PPV23 (Pneumovax) 02/24/2017 Seasonal Influenza, PF, 6 M & above, IM , (FluLaval or Fluzone) 12/02/2019,12/21/2018,12/28/2017,12/22 Seasonal Influenza, Quadriva lent Hd (Fluzone Hd) 12/15/2023,11/22/2022,12/08/2021 Seasonal Influenza, Quadriva lent, No Preserve, IM 01/14/2016 Seasonal Influenza, Trivalen t, Adjuvanted, 65+ YRS, PF, (Fluad) 11/27/2020 TDAP (age 10 and older)(Boostrix) 06/05/2022 Tetanus Toxid Adsorbed 07/29/2021 Varicella Zoster Vaccine (Adult) 07/29/2021,05/04 Zoster Vaccine Recombinant (Shingrix) 06/05/2022 ,04/07/2022 documented as of this encounter Social History Tobacco Use Types Packs/Day Years Used Date Smoking Tobacco: Former Cigarettes 2 40 0 10/20/1945 - 10/20/1985 Smokeless Tobacco: Never Alcohol Use Standard Drinks/Week Comments Not Currently 0 (1 standard drink = 0.6 oz pur e alcohol) social PHQ-2 Answer Date Recorded PHQ Adult Total Score 0 05/13/2024 Hunger Vital Sign Answer Date Recorded Worried About Running Out of Food in the Last Ye ar Never true 09/18/2019 Ran Out of Food in the Last Year Never true 09/18/2019 Comments No Sex and Gender Information Value Date Recorded Sex Assigned at Female 09/11/2018 7:04 AM EDT Legal Sex Female 10:17 AM EDT Gender Identity Female 09/11/2018 7:04 AM EDT Sexual Orientation Not on file Occupation Industry Job Start Date Job End Date retired Not on file Not on file Not on file documented as of this encounter Miscellaneous Notes * Telephone Encounter - Kristi Pathak PHARM Tech - 05/30/2024 9:02 AM EST Patient calling in regarding Metoprolol & Ropinirole. This was last prescribed by PCP office, transferring caller to Medication Refill Line for further assistance. Thank you, Michael Pathak [facility] 05/30/2024,9:02 AM documented in this encounter Plan of Treatment Upcoming Encounters Date Type Department Care Team (Late st Contact Info) Description 07/05/2024 10:00 AM EDT Office Visit Cardiology, [facility] [address] [facility] [place] [address] Kaley Nieves CRNP [address] [place] [address] 11/18/2024 10:40 AM EDT Office Visit Family [facility] [address] [place] [address] Patricia Osullivan MD [address] [place] [address] Health Maintenance Due Date Last Done Comments Adult Wellness Visit 11/26/2007 Diabetic Eye Exam 11/23/2023 11/22/2022, , 12/14/2021, Additional history exists DXA Scan 12/01/2023 11/30/2016 COVID-19 Vaccine ( season) 2024 12/15/2023, 12/27/2022, 12/27/2022, Additional history exists CKD PHOS USE SMARTSET 13486 10/23/202410/02, 04/25/2023, 09/30/2021, Additional history exists GFR 11/04/2024 05/07/2024, 10/02, 04/25/2023, Additional history exists HbA1c 11/04/2024 05/07/2024, 10/02, 04/25/2023, Additional history exists Diabetic Foot Exam 11/08/2024 11/09/2023, 0 10/28/2022, 09/20/2021, Additional history exists Albumin/Creatinine Ratio 05/07/2025 025, 04/25/2023, 05/06/2021, Additional history exists B-12 05/07/2025 05/07/2024, 02/03, 02/17/2022, Additional history exists CKD HGB USE SMARTSET 89471 05/07/202505/07, 05/07/2024, 04/25/2023, Additional history exists TSH 05/07/2025 05/07/2024, 10/02, 03/02/2023, Additional history exists Depression Screening 05/13/2025 05/13/2024 O2 ASSESSMENT COMPLETED IN PAST YEAR FOR COPD 05/13/2025 05/13/2024 DTap/Tdap Vaccines (2 - Td or Tdap) 06/05/2032 06/05/2022 Pneumococcal Vaccine: 50+ Years Completed 02/24/2017, 01/14/2016 Alpha-1 Antitrypsin Completed 10/21/2022 Influenza Vaccine (FLU shot) Completed , 11/22/2022, 12/08/2021, Additional history exists HPV (Gardasil) Vaccine Aged Out No lo nger eligible based on patient's age to complete this topic Hepatitis B Vaccine Aged Out No longe r eligible based on patient's age to complete this topic MENINGOCOCCAL (MENACTRA/MENVEO) Aged Out No longer eligible based on patient's age to complete this topic Meningitis B Vaccine (Bexsero/Trumemba) Aged Out No longer eligible based on patient's age to complete this topic documented as of this encounter Medical Devices Not on filedocumented as of this encounter Care Teams Registered Health Nurse Relationship Specialty Start Date End Date Hakeem Yanes MD [address] [place] [address] PCP - General Family Medicine 02/25/22 documented as of this encounter
--- OUTSIDE RECORDS SUMMARY | 2024-06-07 15:56 | External Medical Summary | Summary of Care ---
Author Name Unknown Organization [facility] Address [address] [place] [address] Phone [phone] Care Team Providers Care Groundman/Lineman Name Role Phone Hakeem Lu MD Primary Care P rovider Reason for Visit * Reason Onset Date Comments Medication Refill 05/30/2024 Encounter Details Date Type Department Care Team ([facility] st Contact Info) Description 05/30/2024 Refill Family [address] [address] Hakeem Lu MD [address] [place] [phone] Restless legs syndrome (RLS) Allergies Active Allergy Reactions Criticality Noted Date Comments Hydrocodone-Acetaminophen Edema face/lips/tongue High 10/21/2015 documented as of this encounter (statuses as of 05/31/2024) Medications TiffanyTodarin Artisrosemarie Lancets 33G Use as directed daily. Dx [...] Take 1-2 Tablets by mouth daily. Active Metoprolol Succinate ER 25 MG Oral Tablet Extended Release 24 Hour (toPROL XL) Take 1 Tablet by mouth in the morning. 90 Tablet 3 05/31/19 24 Active Atorvastatin Calcium 40 MG Oral Tablet [...] hemoglobin A1c of less than 7.5 percent (HCC),Type 2 diabetes mellitus with stage 3a chronic kidney disease and hypertension (HCC) Check blood sugar once a day. DX [...] disease, without long-term current use of insulin (HCC) Inject 0.5 mg under the skin once [...] ions:COPD, group B, by GOLD 2017 classification ([facility]) Inhale 1 Vial via nebulizer every 4 [...] s:COPD, group B, by GOLD 2017 classification ([facility]) Inhale 2 Puffs by mouth every 4 hours as needed for Wheezing. 18 g 5 05/22/19 25 Active Azithromycin 250 MG Oral Tablet (Zithromax Z-Edward)Indications: Atypical pneumonia Take two tablets by mouth on first day, then 1 tablet daily until gone 6 Tablet 05/23/19 25 Active rOPINIRole HCl 2 MG Oral Tablet (Requip)Indication s:Restless legs syndrome (RLS) Take 1 Tablet by mouth at bedtime. 90 Tablet 3 05/30/19 25 Active rOPINIRole HCl 2 MG Oral Tablet (Requip)Indication s:Restless legs syndrome (RLS) Take 1 Tablet by mouth at bedtime. 90 Tablet 3 09/11/19 24 025 Discontin ued(Refil l) documented as of this encounter (statuses as of 05/31/2024) Active Problems Problem Noted Date Diagnosed Date [...] as of this encounter (statuses as of 05/31/2024) Resolved Problems Problem Noted Date Diagnosed Date [...] as of this encounter (statuses as of 05/31/2024) Immunizations Name Administration Dates Next Due COVID-19 mRNA, LNP-s, No Pre serve, 2-Dose Series ([employer]) 12/27/2022,05/19/2022,03/08/2021,06/11,05/14/2020 COVID-19, MRNA-LNP, PF, 30 M CG/0.3 [...] encounter Miscellaneous Notes * Telephone Encounter - Hakeem Lu MD - 05/30/2024 8:04 PM ESTSigned Prescriptions: Disp Refills rOPINIRole HCl 2 MG Oral Tablet (Requip) 90 Tab*3 Sig: Take 1 Tablet by mouth at bedtime. Authorizing Provider: HAKEEM LU * Telephone Encounter - Prudence Ibrahim, salvage diver - 05/30/2024 9:05 AM EST Did you pend patient's preferred pharmacy and medication before forwarding?yes [facility] [phone] [place] Pending Prescriptions: Disp Refills rOPINIRole HCl 2 MG Oral Tablet (Requip) 90 Tab*3 Sig: Take 1 Tablet by mouth at bedtime. Last Visit: 05/13/2024 (in office), Visit date not found (telemedicine) Next Visit: 11/18/2024 If no future appointments scheduled, and last appointment is greater than a year ago, please schedule patient for a follow-up appointment Last date the medication was ordered: 09/11/2023 Is this request for a controlled substance?No Urine Drug Screen:No results found for this or any previous visit. Patient Phone Numbers Labs: Lab Results Component Value Date/Time CREAT 1.5 (H) 05/07/2024 11:36 AM CREAT 1.1 (H) 04/16/2020 12:43 PM POTASSIUM 4.2 05/07/2024 11:36 AM POTASSIUM 4.5 04/16/2020 12:43 PM TSH 2.05 05/07/2024 11:36 AM TSH 1.02 01/15/2020 08:45 AM LDL 27 05/07/2024 11:36 AM LDL 18 09/10/2019 09:10 AM LDL NOT APPLICABLE 09/10/2019 09:10 AM LDLCALC 71 06/04/2015 12:00 AM ALT 32 05/07/2024 11:36 AM ALT 34 01/15/2020 08:45 AM HGBA1C 6.6 (H) 05/07/2024 11:36 AM HGBA1C 7.4 (H) 04/16/2020 12:43 PM documented in this encounter Plan of Treatment Upcoming Encounters Date Type Department Care Team (Late st Contact Info) Description 07/05/2024 10:00 AM EDT Office Visit Cardiology, [facility] [address] [facility] [place] [address] Kaley Nieves CRNP [address] [facility] [place] [address] 11/18/2024 10:40 AM EDT Office Visit Family [facility] [address] [place] [address] Patricia Osullivan MD [address] [place] [phone] Health Maintenance Due Date Last Done Comments Adult Wellness Visit 11/26/2007 Diabetic Eye Exam 11/23/2023 11/22/2022, , 12/14/2021, Additional history exists DXA Scan 12/01/2023 11/30/2016 COVID-19 Vaccine ( season) 2024 12/15/2023, 12/27/2022, 12/27/2022, Additional history exists CKD PHOS USE SMARTSET 32690 10/23/202410/02, 04/25/2023, 09/30/2021, Additional history exists GFR 11/04/2024 05/07/2024, 10/02, 04/25/2023, Additional history exists HbA1c 11/04/2024 05/07/2024, 10/02, 04/25/2023, Additional history exists Diabetic Foot Exam 11/08/2024 11/09/2023, 0 10/28/2022, 09/20/2021, Additional history exists Albumin/Creatinine Ratio 05/07/2025 025, 04/25/2023, 05/06/2021, Additional history exists B-12 05/07/2025 05/07/2024, 02/03, 02/17/2022, Additional history exists CKD HGB USE SMARTSET 33193 05/07/202505/07, 05/07/2024, 04/25/2023, Additional history exists TSH [...] Not on filedocumented as of this encounter Visit Diagnoses Diagnosis Restless legs syndrome (RLS) documented in this encounter Care Teams Groundman/Lineman Relationship Specialty Start Date End Date Hakeem Lu MD [address] [place] [phone] PCP - General Family Medicine 02/25/22 documented as of this encounter
--- OUTSIDE RECORDS SUMMARY | 2024-06-07 15:56 | External Medical Summary | Summary of Care ---
Author Name Unknown Organization [facility] Address [address] [facility] [place] [address] Phone [phone] Care Team Providers Care Cuffing Machine Operator Name Role Phone Hakeem Yanes MD Primary Care P rovider Encounter Details Date Type Department Care Team (Late st Contact Info) Description 05/16/2024 Result Scan Unspecified Department <No scans attached> Allergies Active Allergy Reactions Criticality Noted Date Comments Hydrocodone-Acetaminophen Edema face/lips/tongue High 10/21/2015 documented as of this encounter (statuses as of 05/22/2024) Medications OneTouch Delica Lancets 33G Use as directed daily. Dx E11.9, Disp-100 100 Each 11 02/03/20 20 Active Ventolin HFA 108 (90 Base) MCG/ACT Inhalation Aerosol SolutionIndication s:COPD, group B, by GOLD 2017 classification (HCC) Inhale 2 Puffs by mouth every 4 hours as needed for Wheezing. 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 90 Tablet 3 09/11/19 24 Active Losartan Potassium 50 MG Oral [...] disease, without long-term current use of insulin ([facility]) Inject 0.5 mg under the skin once [...] bedtime. 90 Tablet 2 05/16/19 25 Active documented as of this encounter (statuses as of 05/22/2024) Active Problems Problem Noted Date Diagnosed Date [...] as of this encounter (statuses as of 05/22/2024) Resolved Problems Problem Noted Date Diagnosed Date [...] as of this encounter (statuses as of 05/22/2024) Immunizations Name Administration Dates Next Due COVID-19 mRNA, LNP-s, No Pre serve, 2-Dose Series ([employer]) 12/27/2022,05/19/2022,03/08/2021,06/11,05/14/2020 COVID-19, MRNA-LNP, PF, 30 M CG/0.3 mL, 12 YRS AND ABOVE, IM ([facility]) 12/15/2023 COVID-19, MRNA-LNP, PF, 50 M CG/0.5 [...] on file documented as of this encounter Plan of Treatment Upcoming Encounters Date Type Department Care Team (Late st Contact Info) Description 07/05/2024 10:00 AM EDT Office Visit Cardiology, [facility] 132 [facility] [place] [address] Kaley Nieves CRNP [address] [place] [address] [place] [address] 11/18/2024 10:40 AM EDT Office Visit Family [facility] [address] [place] [address] Patricia Osullivan MD [address] [place] [address] Health Maintenance Due Date Last Done Comments Adult Wellness Visit 11/26/2007 Diabetic Eye Exam 11/23/2023 11/22/2022, , 12/14/2021, Additional history exists DXA Scan 12/01/2023 11/30/2016 COVID-19 Vaccine ( season) 2024 12/15/2023, 12/27/2022, 12/27/2022, Additional history exists CKD PHOS USE SMARTSET 34640 10/23/202410/02, 04/25/2023, 09/30/2021, Additional history exists GFR 11/04/2024 05/07/2024, 10/02, 04/25/2023, Additional history exists HbA1c 11/04/2024 05/07/2024, 10/02, 04/25/2023, Additional history exists Diabetic Foot Exam 11/08/2024 11/09/2023, 0 10/28/2022, 09/20/2021, Additional history exists Albumin/Creatinine Ratio 05/07/2025 025, 04/25/2023, 05/06/2021, Additional history exists B-12 05/07/2025 05/07/2024, 02/03, 02/17/2022, Additional history exists CKD HGB USE SMARTSET 83180 05/07/202505/07, 05/07/2024, 04/25/2023, Additional history exists TSH 05/07/2025 05/07/2024, 07/2 06/2023, 03/02/2023, Additional history exists Depression Screening 05/13/2025 [...] Not on filedocumented as of this encounter Procedures Procedure Name Priority Date/Time Associated Diagnosis Comments EKG SCANNED RESULT 05/16/2024 RADIOLOGY SCANNED RESULT 05/16/2024 documented in this encounter Results * RADIOLOGY SCANNED RESULT (05/16/2024) 05/16/2024 us No Physician Data Unknown DIAGNOSTIC RADIOLOGY S ERVICES Final Result * EKG SCANNED RESULT (05/16/2024) 05/16/2024 us No Physician Data Unknown EKG Final Result documented in this encounter Care Teams Cuffing Machine Operator Relationship Specialty Start Date End Date Hakeem Yanes MD [address] [place] [address] PCP - General Family Medicine 02/25/22 documented as of this encounter
--- OUTSIDE RECORDS SUMMARY | 2024-06-07 15:56 | External Medical Summary | Summary of Care ---
Author Name Unknown Organization [facility] Address [address] [place] [address] Phone [phone] Care Team Providers Care Optical Worker Name Role Phone Hakeem Lu MD Primary Care P rovider Reason for Visit * Reason Onset Date Comments Medication Refill 05/21/2024 Encounter Details Date Type Department Care Team ([facility] st Contact Info) Description 05/21/2024 Refill Family [address] [address] Hakeem Lu MD [address] [place] [id number] COPD, group B, by GOLD 2017 classification ([facility]) Allergies Active Allergy Reactions Criticality Noted Date [...] stage 3a chronic kidney disease and hypertension ([facility]) Check blood sugar once [...] ions:COPD, group B, by GOLD 2017 classification ([facility]) Inhale 1 Vial via [...] s:COPD, group B, by GOLD 2017 classification ([facility]) Inhale 2 Puffs by mouth every 4 hours as needed for Wheezing. 18 g 5 05/22/19 25 Active Ventolin HFA 108 (90 Base) MCG/ACT Inhalation Aerosol SolutionIndication s:COPD, group B, by GOLD 2017 classification ([facility]) Inhale 2 Puffs by mouth every 4 hours as needed for Wheezing. 18 g 5 08/15/19 21 025 Discontin ued(Refil l) documented as of [...] encounter Miscellaneous Notes * Telephone Encounter - Everette Gayle RPh - 05/22/2024 1:35 PM ESTSigned Prescriptions: Disp Refills Ventolin HFA 108 (90 Base) MCG/ACT Inhalat*18 g 5 Sig: Inhale 2 Puffs by mouth every 4 hours as needed for Wheezing.Authorizing Provider: HAKEEM LU User: EVERETTE GAYLE * Telephone Encounter - Jia Hankins CPhT - 05/21/2024 12:05 PM EST Did you pend patient's preferred pharmacy and medication before forwarding?yes [facility]acy: [facility] Pending Prescriptions: Disp Refills Ventolin HFA 108 (90 Base) MCG/ACT Inhala*18 g 5 Sig: Inhale 2 Puffs by mouth every 4 hours as needed for Wheezing. Last Visit: 05/13/2024 (in office), Visit date not found (telemedicine) Next Visit: 11/18/2024 If no future appointments scheduled, and last appointment is greater than a year ago, please schedule patient for a follow-up appointment Last date the medication was ordered: 08/14/2020 Is this request for a controlled substance?No [...] 07/05/2024 10:00 AM EDT Office Visit Cardiology, [facility] 132 [facility] [place] [address] Kaley Nieves CRNP [address] [place] [address] [place] [id number] 11/18/2024 10:40 AM EDT Office Visit Family [facility] [address] [place] [address] Patricia Osullivan MD [address] [place] [address] Health Maintenance Due Date Last Done Comments Adult Wellness Visit 11/26/2007 Diabetic Eye Exam 11/23/2023 11/22/2022, , 12/14/2021, Additional history exists DXA Scan 12/01/2023 11/30/2016 COVID-19 Vaccine ( season) 2024 12/15/2023, 12/27/2022, 12/27/2022, Additional history exists CKD PHOS USE SMARTSET 99615 10/23/202410/02, 04/25/2023, 09/30/2021, Additional history exists GFR 11/04/2024 05/07/2024, 10/02, 04/25/2023, Additional history exists HbA1c 11/04/2024 05/07/2024, 10/02, 04/25/2023, Additional history exists Diabetic Foot Exam 11/08/2024 11/09/2023, 0 10/28/2022, 09/20/2021, Additional history exists Albumin/Creatinine Ratio 05/07/2025 025, 04/25/2023, 05/06/2021, Additional history exists B-12 05/07/2025 05/07/2024, 02/03, 02/17/2022, Additional history exists CKD HGB USE SMARTSET 03914 05/07/202505/07, 05/07/2024, 04/25/2023, Additional history exists TSH [...] as of this encounter Visit Diagnoses Diagnosis COPD, group B, by GOLD 2017 classification (HCC) documented in this encounter Care Teams Optical Worker Relationship Specialty Start Date End Date Hakeem Lu MD [address] [place] [address] PCP - General Family Medicine 02/25/22 documented as of this encounter
--- OUTSIDE RECORDS SUMMARY | 2024-06-07 15:56 | External Medical Summary | Summary of Care ---
Author Name Unknown Organization [facility] Address [address] [place] [address] Phone [phone] Care Team Providers Care Organization Development Consultant Name Role Phone Hakeem Yanes MD Primary Care P rovider Reason for Visit * Reason Onset Date Comments Advice 05/16/2024 Med Request 05/16/2024 Encounter Details Date Type Department Care Team ([facility] Contact Info) Description 05/16/[address] [address] Hakeem Yanes MD [address] [place] [phone] Advice; Med Request Allergies Active Allergy Reactions Criticality Noted Date Comments Hydrocodone-Acetaminophen Edema face/lips/tongue High 10/21/2015 documented as of this encounter (statuses as of 05/17/2024) Medications OneTouch Delica Lancets 33G Use as directed daily. 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 75 mL 5 05/16/19 25 Active amLODIPine Besylate 10 MG Oral Tablet (Norvasc)Indicatio ns:Essential hypertension with goal blood pressure less than 140/90 Take 1 Tablet by mouth at bedtime. 90 Tablet 2 05/16/19 25 Active Albuterol Sulfate (2.5 MG/3ML) 0.083% Inhalation Nebulization Solution (Proventil)Indicat ions:Acute bronchitis, complicated Inhale 1 Vial via nebulizer every 4 hours as needed for Wheezing, Shortness of Breath or Other (Cough). 75 mL 5 05/04/19 24 025 Discontin ued(Refil l) amLODIPine Besylate 10 MG Oral Tablet (Norvasc) Take 1 Tablet by mouth at bedtime. 90 Tablet 2 08/15/19 24 025 Discontin ued(Refil l) documented as of this encounter (statuses as of 05/17/2024) Active Problems Problem Noted Date Diagnosed Date [...] as of this encounter (statuses as of 05/17/2024) Resolved Problems Problem Noted Date Diagnosed Date [...] as of this encounter (statuses as of 05/17/2024) Immunizations Name Administration Dates Next Due COVID-19 [...] Miscellaneous Notes * Telephone Encounter - Hakeem Yanes MD - 05/16/2024 7:03 PM EST Electronically prescribed. * Telephone Encounter - Lolly Babin OSA - 05/16/2024 2:06 PM EST Patient is in need of a refill for Albuterol Sulfate (2.5 MG/3ML) 0.083% Inhalation Nebulization Solution (Proventil), amLODIPine Besylate 10 MG Oral Tablet (Norvasc) documented in this encounter Plan of Treatment Upcoming Encounters Date Type Department Care Team (Late st Contact Info) Description 07/05/2024 10:00 AM EDT Office Visit Cardiology, [facility] 132 [facility] [place] [address] Kaley Nieves CRNP [address] [place] [address] [place] [address] 07/18/2024 1:00 PM EDT Office Visit Orthopaedics [address] [place] [address] Irwin Seay, DO [address] [place] [address] 11/18/2024 10:40 AM EDT Office Visit [facility] [address] [place] [address] Patricia Osullivan MD [address] [place] [address] Health Maintenance Due Date Last Done Comments Adult Wellness Visit 11/26/2007 Diabetic Eye Exam 11/23/2023 11/22/2022, , 12/14/2021, Additional history exists DXA Scan 12/01/2023 11/30/2016 CKD PHOS USE SMARTSET 45051 10/23/202410/02, 04/25/2023, 09/30/2021, Additional history exists GFR 11/04/2024 05/07/2024, 10/02, 04/25/2023, Additional history exists HbA1c 11/04/2024 05/07/2024, 10/02, 04/25/2023, Additional history exists Diabetic Foot Exam 11/08/2024 11/09/2023, 0 10/28/2022, 09/20/2021, Additional history exists Albumin/Creatinine Ratio 05/07/2025 025, 04/25/2023, 05/06/2021, Additional history exists B-12 05/07/2025 05/07/2024, 02/03, 02/17/2022, Additional history exists CKD HGB USE SMARTSET 17213 05/07/202505/07, 05/07/2024, 04/25/2023, Additional history exists TSH 05/07/2025 05/07/2024, 10/02, 03/02/2023, Additional history exists Depression Screening 05/13/2025 05/13/2024 O2 ASSESSMENT COMPLETED IN PAST YEAR FOR COPD 05/13/2025 05/13/2024 DTap/Tdap Vaccines (2 - Td or Tdap) 06/05/2032 06/05/2022 Pneumococcal Vaccine: 50+ Years Completed 02/24/2017, 01/14/2016 Alpha-1 Antitrypsin Completed 10/21/2022 COVID-19 Vaccine Completed 12/15/2023, , 12/27/2022, Additional history exists Influenza Vaccine (FLU shot) Completed , 11/22/2022, [...] as of this encounter Visit Diagnoses Diagnosis Essential hypertension with goal blood pressure less than 140/90- Primary Acute bronchitis, complicated Acute bronchitis COPD, group B, by GOLD 2017 classification (HCC) documented in this encounter Care Teams Organization Development Consultant Relationship Specialty Start Date End Date Hakeem Yanes MD [address] [place] [address] PCP - General Family Medicine 02/25/22 documented as of this encounter
--- OUTSIDE RECORDS SUMMARY | 2024-06-07 15:56 | External Medical Summary | Summary of Care ---
Author Name Unknown Organization [facility] Address [address] [place] [address] Phone [phone] Care Team Providers Care Lab Animal Technologist Name Role Phone Hakeem Yanes MD Primary Care P rovider Reason for Visit * Reason Comments eRx-Medication Refill Encounter Details Date Type Department Care Team ([facility] Contact Info) Description 05/31/2024 Refill Family [address] [address] Hakeem Yanes MD [address] [place] [phone] Allergies Active Allergy Reactions Criticality Noted Date Comments Hydrocodone-Acetaminophen Edema face/lips/tongue High 10/21/2015 documented as of this encounter (statuses as of 05/31/2024) Medications OneTouch Artis Lancets 33G Use as directed daily. [...] disease, without long-term current use of insulin ([facility]) Inject 0.5 mg under the [...] ions:COPD, group B, by GOLD 2017 classification ([facility]) Inhale 1 Vial via nebulizer [...] s:COPD, group B, by GOLD 2017 classification ([facility]) Inhale 2 Puffs by mouth every 4 hours as needed for Wheezing. 18 g 5 05/22/19 25 Active Azithromycin 250 MG Oral Tablet (Zithromax Z-Edward)Indications: Atypical pneumonia Take two tablets by mouth on first day, then 1 tablet daily until gone 6 Tablet 05/23/19 25 Active Metoprolol Succinate ER 25 MG Oral Tablet Extended Release 24 Hour (toPROL XL) Take 1 Tablet by mouth in the morning. 90 Tablet 3 05/31/19 25 Active rOPINIRole HCl 2 MG Oral Tablet (Requip)Indication s:Restless legs syndrome (RLS) Take 1 Tablet by mouth at bedtime. 90 Tablet 3 05/30/19 25 Active documented as of this encounter [...] encounter Miscellaneous Notes * Telephone Encounter - Leslee Rose RPh - 05/31/2024 2:24 PM ESTRefused Prescriptions: Disp Refills Metoprolol Succinate ER 25 MG Oral Tablet *90 Tab*0 Sig: TAKE 1TABLET BY MOUTH IN THE MORNINGRefused By: LESLEE ROSENReason for Refusal: Duplicate Request-- documented in this encounter Plan of Treatment Upcoming Encounters Date Type Department Care Team (Late st Contact Info) Description 07/05/2024 10:00 AM EDT Office Visit Cardiology, [facility] 132 [facility] [place] [address] Kaley Nievse CRNP [address] [facility] [place] [address] 11/18/2024 10:40 AM EDT Office Visit Family Practice [facility] [address] [place] [address] Patricia Osullivan MD [address] [place] [address] Health Maintenance Due Date Last Done Comments Adult Wellness Visit 11/26/2007 Diabetic Eye Exam 11/23/2023 11/22/2022, , 12/14/2021, Additional history exists DXA Scan 12/01/2023 11/30/2016 COVID-19 Vaccine ( season) 2024 12/15/2023, 12/27/2022, 12/27/2022, Additional history exists CKD PHOS USE SMARTSET 43633 10/23/202410/02, 04/25/2023, 09/30/2021, Additional history exists GFR 11/04/2024 05/07/2024, 10/02, 04/25/2023, Additional history exists HbA1c 11/04/2024 05/07/2024, 10/02, 04/25/2023, Additional history exists Diabetic Foot Exam 11/08/2024 11/09/2023, 0 10/28/2022, 09/20/2021, Additional history exists Albumin/Creatinine Ratio 05/07/2025 025, 04/25/2023, 05/06/2021, Additional history exists B-12 05/07/2025 05/07/2024, 02/03, 02/17/2022, Additional history exists CKD HGB USE SMARTSET 45883 05/07/202505/07, 05/07/2024, 04/25/2023, Additional history exists TSH [...] filedocumented as of this encounter Care Teams Lab Animal Technologist Relationship Specialty Start Date End Date Hakeem Yanes MD [address] [place] [address] PCP - General Family Medicine 02/25/22 documented as of this encounter
--- OUTSIDE RECORDS SUMMARY | 2024-06-07 15:56 | External Medical Summary | Summary of Care ---
Author Name Unknown Organization [facility] Address [address] [place] [address] Phone [phone] Care Team Providers Care Senior Actuarial Analyst Name Role Phone Hakeem Lu MD Primary Care P rovider Reason for Visit * Reason Onset Date Comments Medication Refill 05/30/2024 Encounter Details Date Type Department Care Team ([facility] st Contact Info) Description 05/30/2024 Refill Family [address] [phone] Hakeem Lu MD [address] [place] [phone] Restless legs syndrome (RLS) Allergies Active Allergy [...] stage 3a chronic kidney disease and hypertension ([facility]) Check blood sugar once a day. DX [...] disease, without long-term current use of insulin ([facility]) Inject 0.5 mg under the skin once [...] ions:COPD, group B, by GOLD 2017 classification ([facility]) Inhale 1 Vial via nebulizer every 4 [...] s:COPD, group B, by GOLD 2017 classification ([facility]) Inhale 2 Puffs by mouth every 4 [...] morning. 90 Tablet 3 05/31/19 25 Active Metoprolol Succinate ER 25 MG Oral Tablet Extended Release 24 Hour (toPROL XL) Take 1 Tablet by mouth in the morning. 90 Tablet 3 05/31/19 24 025 Discontin ued(Refil l) documented as [...] encounter Miscellaneous Notes * Telephone Encounter - Faith Rose [facility] - 05/31/2024 2:24 PM ESTSigned Prescriptions: Disp Refills Metoprolol Succinate ER 25 MG Oral Tablet *90 Tab*3 Sig: Take 1 Tablet by mouth in the morning.Authorizing Provider: HAKEEM LU User: FAITH ROSE * Telephone Encounter - Faith Rose [facility] - 05/31/2024 2:24 PM ESTSigned Prescriptions: Disp Refills Metoprolol Succinate ER 25 MG Oral Tablet *90 Tab*3 Sig: Take 1 Tablet by mouth in the morning. Authorizing Provider: HAKEEM LU Ordering User: FAITH ROSE * Telephone Encounter - Janae Pardo, automatic screwmaker - 05/31/2024 2:18 PM EST Pt checking status of metoprolol succ. Pt has 3 left. Thank You, Janae Pardo [facility] 05/31/2024, 2:19 PM * Telephone Encounter - Prudence Ibrahim automatic screwmaker - 05/30/2024 9:03 AM EST Did you pend patient's preferred pharmacy and medication before forwarding?yes Pharmacy: [facility] Pending Prescriptions: Disp Refills Metoprolol Succinate ER 25 MG Oral Tablet*90 Tab*3 Sig: Take 1 Tablet by mouth in the morning. Last Visit: 05/13/2024 (in office), Visit date not found (telemedicine) Next Visit: 11/18/2024 If no future appointments scheduled, and last appointment is greater than a year ago, please schedule patient for a follow-up appointment Last date the medication was ordered: 05/31/2023 Is this request for a controlled substance?No [...] 07/05/2024 10:00 AM EDT Office Visit Cardiology, [facility] [address] [facility] [place] [address] Kaley Nieves CRNP [address] [place] [address] 11/18/2024 10:40 AM EDT Office Visit Family [facility] [address] [place] [address] Patricia Osullivan MD [address] [place] [address] Health Maintenance Due Date Last Done Comments Adult Wellness Visit 11/26/2007 Diabetic Eye Exam 11/23/2023 11/22/2022, , 12/14/2021, Additional history exists DXA Scan 12/01/2023 11/30/2016 COVID-19 Vaccine ( season) 2024 12/15/2023, 12/27/2022, 12/27/2022, Additional history exists CKD PHOS USE SMARTSET 48647 10/23/202410/02, 04/25/2023, 09/30/2021, Additional history exists GFR 11/04/2024 05/07/2024, 10/02, 04/25/2023, Additional history exists HbA1c 11/04/2024 05/07/2024, 10/02, 04/25/2023, Additional history exists Diabetic Foot Exam 11/08/2024 11/09/2023, 0 10/28/2022, 09/20/2021, Additional history exists Albumin/Creatinine Ratio 05/07/2025 025, 04/25/2023, 05/06/2021, Additional history exists B-12 05/07/2025 05/07/2024, 02/03, 02/17/2022, Additional history exists CKD HGB USE SMARTSET 97511 05/07/202505/07, 05/07/2024, 04/25/2023, Additional history exists TSH 05/07/2025 05/07/2024, 0706/2023, 03/02/2023, Additional history exists Depression Screening 05/13/2025 [...] (RLS) documented in this encounter Care Teams Senior Actuarial Analyst Relationship Specialty Start Date End Date Hakeem Lu MD [address] [place] [phone] PCP - General Family Medicine 02/25/22 documented as of this encounter
--- OUTSIDE RECORDS SUMMARY | 2024-06-07 15:56 | External Medical Summary | Summary of Care ---
Author Name Unknown Organization [facility] Address [address] [place] [address] Phone [phone] Care Team Providers Care Graduate Nurse Name Role Phone Hakeem Yanes MD Primary Care [facility] [place] Encounter Details Date Type Department Care Team (Late st Contact Info) Description 05/27/2024 Orders Only Outcomes Research Department [address], [place] [phone] Irasema Brown CHRA My[facility] Research Other*[id number] Allergies Active Allergy Reactions Criticality Noted Date Comments Hydrocodone-Acetaminophen Edema face/lips/tongue High 10/21/2015 documented as of this encounter (statuses as of 05/27/2024) Medications OneTouch Delica Lancets 33G Use as [...] hemoglobin A1c of less than 7.5 percent ([facility]),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 18 g 5 05/22/19 25 Active Azithromycin 250 MG Oral Tablet (Zithromax Z-Edward)Indications: Atypical pneumonia Take two tablets by mouth on first day, then 1 tablet daily until gone 6 Tablet 05/23/19 25 Active documented as of this encounter (statuses as of 05/27/2024) Active Problems Problem Noted Date Diagnosed Date [...] as of this encounter (statuses as of 05/27/2024) Resolved Problems Problem Noted Date Diagnosed Date [...] as of this encounter (statuses as of 05/27/2024) Immunizations Name Administration Dates Next Due COVID-19 mRNA, LNP-s, No Pre serve, 2-Dose Series ([employer]) 12/27/2022,05/19/2022,03/08/2021,06/11,05/14/2020 COVID-19, MRNA-LNP, PF, 30 M CG/0.3 [...] Upcoming Encounters Date Type Department Care Team ([facility] st Contact Info) Description 07/05/2024 10:00 AM EDT Office Visit Cardiology, [facility] [address] [facility] [place] [address] Kaley Nieves CRNP [address] [place] [address] 11/18/2024 10:40 AM EDT Office Visit Family [facility] [address] [place] [address] Patricia Osullivan MD [address] [place] [address] Scheduled Orders Name Type Priority Associated Diagnoses Orde r Schedule MYCODE SUBSEQUENT ADULT Lab Routine My[facility] Research Other*[id number] Every 6 Months for 2 Occurrences starting 05/27/2024 until 06/16/2025 Health Maintenance Due Date Last Done Comments Adult Wellness Visit 11/26/2007 Diabetic Eye Exam 11/23/2023 11/22/2022, , 12/14/2021, Additional history exists DXA Scan 12/01/2023 11/30/2016 COVID-19 Vaccine ( season) 2024 12/15/2023, 12/27/2022, 12/27/2022, Additional history exists CKD PHOS USE SMARTSET 61110 10/23/202410/02, 04/25/2023, 09/30/2021, Additional history exists GFR 11/04/2024 05/07/2024, 10/02, 04/25/2023, Additional history exists HbA1c 11/04/2024 05/07/2024, 10/02, 04/25/2023, Additional history exists Diabetic Foot Exam 11/08/2024 11/09/2023, 0 10/28/2022, 09/20/2021, Additional history exists Albumin/Creatinine Ratio 05/07/2025 025, 04/25/2023, 05/06/2021, Additional history exists B-12 05/07/2025 05/07/2024, 02/03, 02/17/2022, Additional history exists CKD HGB USE SMARTSET 62870 05/07/202505/07, 05/07/2024, 04/25/2023, Additional history exists TSH [...] as of this encounter Visit Diagnoses Diagnosis [facility] Other*[id number] documented in this encounter Care Teams Graduate Nurse Relationship Specialty Start Date End Date Hakeem Yanes MD [address] [place] [phone] PCP - General Family Medicine 02/25/22 documented as of this encounter
[2024-06-07] MEDS: GABAPENTIN 600 MG TAB PO SCH (21:44)
[2024-06-07] MEDS: rOPINIRole HCL 2 MG TABLET PO SCH (21:44)
[2024-06-07] MEDS: oxyCODONE HCL IR 5 MG TAB (IMMEDIATE RELEASE) PO PRN (21:44)
[2024-06-07] MEDS: ASPIRIN 81 MG ECTAB PO SCH (21:44)
[2024-06-07] MEDS: SENNA 8.6 MG TAB PO SCH (21:44)
[2024-06-07] MEDS: DOCUSATE SODIUM 100 MG CAP PO SCH (21:44)
[2024-06-08] MEDS: LEVOTHYROXINE SODIUM 75 MCG TABLET PO SCH (05:53)
[2024-06-08 07:42] VITALS: RESP 18; O2SAT 94
--- NOTE | 2024-06-08 08:16 | Orthopedic Progress Note ---
Date of Service June 08, 2024 Assessment & Plan (1) Status post right hip replacement: Overall she is doing very well. She is not having much pain in the right hip. She will be seen by physical therapy today for ambulation and range of motion exercises. She is on aspirin for DVT prophylaxis. She can be discharged to [facility] today. She will follow-up with orthopedics in 2 weeks. Dion Ji was seen and examined at bedside this morning. Overall she is doing very well. She is not having much pain in the right hip. She has been up and ambulating to the bathroom. She has no complaints.. Review of Systems All systems reviewed & are unremarkable except as noted in HPI & below. Physical Exam On physical exam of the right hip, the dressing is clean and dry. Her leg is out full extension. She has active dorsiflexion plantarflexion of her right ankle.. Results & Data Results & Data Laboratory Results . Diagnostic Findings Postoperative x-rays of the right hip show the prosthesis to be in anatomic alignment without any evidence of fracture complication, or loosening.. PG Care Time/CCT Total # of Minutes Spent Total Time Spent with Patient: Total time spent is greater than 50% in coordination of care (as documented) at patient's floor/unit and/or counseling patient: Coding Level of Care Code 66486 Post Operative Follow-Up Diagnoses Status post right hip replacement Z96.641
--- NOTE | 2024-06-08 08:17 | Discharge Summary ---
Date of Service June 08, 2024 Principal Diagnosis Same as "Discharge Diagnosis" noted below under Discharge Instructions. Discharge Exam On physical exam of the right hip, the dressing is clean and dry. Her leg is out full extension. She has active dorsiflexion plantarflexion of her right ankle.. Discharge Data Procedures Performed Operation Date: 06/07/24 08:00 Actual Procedures p Right Anterior Total Hip Arthroplasty(Right) - Irwin Campbell DO Ordered Studies 06/07/24 08:00 FL hip RT 1V Routine Hospital Course (1) Status post right hip replacement: On June 07, 2024 Margy arrived at [facility] and underwent a right hip replacement without complication. She had a spinal anesthetic. Postoperatively, she was started on aspirin for DVT prophylaxis and transferred to the general orthopedic floors. Her hospital course was uneventful. On postop day #1, her vital signs were stable and her pain was well-controlled. She was able to participate well with physical therapy doing ambulation and range of motion exercises. She was then discharged to [facility]. She will follow-up with orthopedics in 2 weeks. PG Care Time/CCT Total # of Minutes Spent Total Time Spent with Patient: Total time spent is greater than 50% in coordination of care (as documented) at patient's floor/unit and/or counseling patient: Discharge Plan Discharge Items Patient Disposition: Transfer Inpatient Rehab Fac Reason For Visit: Right Hip Arthritis Discharge Diagnosis: Right hip replacement Activity: Per Instructions section Non-emergency contact: Surgeon Call non-emergency contact if: your wound has increased redness and your wound has increased drainage Follow-up/Referrals: [facility] [Non-Staff] - Brigida Pandey DO [Primary Care Provider] - Diet: Regular Addtl Attending Provider Instructions: Activity and Therapy Recommendations: * If you are using [facility] then therapy will be provided at your home until they feel you have accomplished all of your goals. * If you are using [facility] then Physical Therapy will be provided until they feel you are ready to start Outpatient Physical Therapy. * If you are not using home therapy then Outpatient Physical Therapy should start about 3-5 days from your day of surgery. Therapy will last about 6-10 weeks * You were shown a series of exercises in the hospital. Do these exercises three times each day including the exercises you were shown in physical therapy. * Get up and walk several times each day.~ For the first four weeks, try not to stand or walk for more than one hour at a time. If you do stand or walk for more than one hour, you will not hurt anything, but your leg will likely swell.~~ * As you feel comfortable, you may change from the walker or crutches to a cane and~then to independent walking. Medications: * Narcotic You will likely be sent home from the hospital with a prescription for the narcotic pain medication that worked best throughout your stay. * Cefadroxil -take the antibiotic twice a day for 10 days to help prevent infection. * Aspirin Most patients will be required to take Aspirin 81mg twice a day for 6 weeks after surgery. This is obtained [id number] and a prescription is not necessary. * Other medications may be prescribed for specific circumstances. If you have any questions, please call the office at . * Resume previous home medications unless otherwise instructed TEDs/Elastic Stockings: The white elastic stockings help limit swelling and prevent blood clots from forming in your legs. The more you wear them, the more they work. Wear them for 2 weeks. Dressing Care: Leave the Silverlon dressing in place for 7 days. After 7 days you may remove the dressing. If the incision is not draining then you may leave the kalpana open to air. If there is a little bit of drainage or if the kalpana are getting stuck on your clothing then cover the incision with a dry dressing. The kalpana will be removed at your 2 week follow-up appointment. Showering: You may shower with the Silverlon dressing in place. Do not let the shower spray hit the dressing directly. Pat the Silverlon dressing dry. If the dressing becomes wet underneath, then simply remove the dressing. Keep the incision dry until you are 7 days out from the day of surgery. After 7 days you may remove the Silverlon dressing and shower with the kalpana exposed. Let soapy water run over the kalpana and pat them dry. Do not scrub or soak the incision. Diet: You may resume your previous diet. Things To Watch For: * Drainage from the incision site that occurs more than one week after your surgery. * Increased redness at the incision site. * Fever above 102 degrees Fahrenheit. * Unusual chest pain or shortness of breath. * Call [facility] at with any of the above problems Follow-Up Visit: Follow-up with Dr. Campbell's office 2-3 weeks after your day of surgery. We will remove your kalpana and answer any questions. If you have any additional questions or concerns, Dr Campbell is usually in the office at the same time and will be available An appointment was probably scheduled when you signed-up for surgery in the office. If you have any questions call Office Instructions: More detailed instructions as well as Frequently Asked Questions were provided in a folder by our office when you signed-up for surgery. Please review these instructions when you get home. If you have any further questions or concerns, please feel free to call the office at [phone] Pending Studies at Discharge: No Stand-Alone Forms: My [facility] [employer]hip, Smoking Cessation Skilled Items Patient informed of condition?: Yes DNR: No Discharge Level of Care: Acute rehab Communicable Disease: No Discharge Prognosis: Improving Lines: None Urinary Catheter: No Medications and DC Order Prescriptions: New cefadroxil 500 mg capsule 500 mg PO BID 10 Days Qty: 20 0RF oxycodone 5 mg tablet 5 mg PO Q6H PRN (Reason: pain) Qty: 30 0RF aspirin 81 mg Tablet,Delayed Release (Dr/Ec) 81 mg PO BID 42 Days Qty: 84 0RF Continued (DME) Wheeled Walker Misc See Rx Instructions .MEDSUPPLY Qty: 1 0RF Rx Instructions: As directed gabapentin 600 mg tablet 600 mg PO HS Patient Comments: uses prn, "maybe 2x per week" losartan 50 mg Tablet 50 mg PO QAM atorvastatin [Lipitor] 40 mg Tablet 40 mg PO QAM ropinirole 2 mg Tablet 2 mg PO HS escitalopram oxalate [Lexapro] 10 mg Tablet 10 mg PO DAILY acetaminophen 500 mg Tablet 1,000 mg PO Q6H PRN (Reason: Pain) levothyroxine 75 mcg tablet 75 mcg PO QAM oxycodone 5 mg tablet 5 mg PO UD PRN (Reason: Pain) Ozempic 0.25 mg or 0.5 mg (2 mg/3 mL) Pen Injector 0.25 mg SUBCUT Q7D Patient Comments: wednesdays albuterol sulfate 90 mcg/actuation Hfa Aerosol Inhaler 1 inh INHALATION QID PRN (Reason: SOB or wheezing) metoprolol succinate 25 mg tablet extended release 24 hr 25 mg PO 1XD Discharge Orders: Discharge Order (Routine); Ordered 06/08/24 Ordered By: Irwin Campbell Admission Data Admit Date/Time: 06/07/24 09:37 Attending Provider: Irwin Campbell Admit Provider: Irwin Campbell Primary Care Provider: Brigida Pandey [facility]
[2024-06-08] MEDS: ESCITALOPRAM OXALATE 10 MG TAB PO SCH (08:43)
[2024-06-08] MEDS: METOPROLOL SUCC 25MG EXT REL TAB PO SCH (08:43)
[2024-06-08] MEDS: MULTIVITAMIN TAB PO SCH (08:43)
[2024-06-08] MEDS: ATORVASTATIN 40 MG TAB PO SCH (08:43)
[2024-06-08] MEDS: LOSARTAN POTASSIUM 50 MG TAB PO SCH (08:43)
[2024-06-08 11:38] VITALS: BP 110/70; TEMP 98.1
[2024-06-08 13:02] VITALS: PULSE 75
== END 2024-06-08 14:55 ==
LOC: ASU 05:50 → 3N 05:50